=== PATIENT | female | born 1975 | race Caucasian/White ===

== ENCOUNTER 2017-03-05 20:08 | Emergency (ER) | payer OTHER ==
[~2017-03-05] VITALS: Ht 154.9 cm; Wt 52.3 kg
[~2017-03-05 20:08] MED LIST: ASPIR-TRIN325 M1 PO; Birth Control Pill; CHANTIX0.5 MG PO; CLINDAMYCIN HC150 MG PO; CLONAZEPAM0.5 MG; CLONAZEPAM0.5 MG PO; CYCLOBENZAPRINE 10 M; CYMBALTA30 MG PO; DEPAKOTE250 MG; ENDOCET 5-3251 EACH; ENDOCET 5-3251 EACH PO; FIORICET 50-301 EACH PO; GABAPENTIN100 MG PO; HYDROXYZINE PAM25 MG PO; IMITREX25 MG PO; KLONOPIN0.5 M1 PO; LAMICTAL25 MG PO; MACROBID100 MG PO; METHYLPREDNISOLONE PO; MOBIC7.5 MG PO; NAPROSYN500 MG PO; NICODERM CQ1 EAC2 TD; NICOTINE; OMEPRAZOLE20 M3 PO; PERCOCET 5/31 TABLET PO; PREDNISONE10 MG; QUETIAPINE FUMA50 MG PO; RANITIDINE HCL300 MG PO; SUMATRIPTAN SUC50 MG; VALIUM5 MG PO; VENLAFAXINE HC150 M1 PO; XANAX0.5 MG PO; Xanax PO; ZITHROMAX Z-PA250 MG PO; ZITHROMAX250 MG PO; ZOLPIDEM TARTRAT5 MG PO
[2017-03-05 20:59] LABS: HEMATOCRIT 37.5 % (36.0-46.0); MCH 31.6 PG (29.0-34.0); MCHC 34.7 G/DL (30.0-36.0); MEAN PLAT.VOLUME 9.6 uM^3 (9.5-12.4); PLATELET COUNT 220 K/uL (156-360); RBC DIS.WIDTH-CV 11.9 % (11.8-14.6); RBC DIS.WIDTH-SD 39.6 % (39-53); RED BLOOD COUNT 4.12 M/uL (3.80-5.20); WHITE BLOOD COUNT 9.5 K/uL (4.1-10.2)
[2017-03-05 21:07] LABS: CHLORIDE 108 mEq/L (99-109); POTASSIUM 3.1 mEq/L (3.7-5.4); SODIUM 142 mEq/L (136-147)
[2017-03-05 21:09] LABS: GLUCOSE 92 mg/dL (70-99)
[2017-03-05 21:11] LABS: ANION GAP 10 MEQ/L (2-14)
[2017-03-05 21:13] LABS: ALKALINE PHOSPHATASE 55 IU/L (3-129); GFR ESTIMATE (CALCULATED) > 59 mL/min/
[2017-03-05 21:14] LABS: UREA NITROGEN (BUN) 7 mg/dL (9-23)
[2017-03-05 21:24] LABS: QUANTITATIVE HCG < 4.0 MIU/ML
[2017-03-05] MEDS ORDERED: ZOFRAN4 MG PO (23:03)
[2017-03-05] MEDS ORDERED: BENTYL10 MG PO (23:03)
[2017-03-05 23:12] LABS: ADD MIUA? NO; BILIRUBIN NEGATIVE; BLOOD NEGATIVE; COLOR YELLOW ((YELLOW)); GLUCOSE (STRIP) NEGATIVE; KETONES NEGATIVE; LEUKOCYTES NEGATIVE; NITRITE NEGATIVE; PROTEIN (STRIP) NEGATIVE; UCUL ADDED? NO; UROBILINOGEN 0.2 MG/DL (0.2-1.0)
[2017-03-05 23:36] VITALS: BP 116/76
[2017-03-05 23:41] LABS: SPECIFIC GRAVITY 1.067 (1.000-1.030)
== END 2017-03-05 23:40 | disposition home or self-care (01) ==
LOC: EME 20:08
DX: R10.9 Unspecified abdominal pain (principal); Z88.6 Allergy status to analgesic agent; Z87.891 Personal history of nicotine dependence
CPT/HCPCS: 74177; 80053; 81003; 83605; 84702; 85027; 99281; 99285; J2405; J3010; J7030

== ENCOUNTER 2018-02-24 18:19 | Emergency (ER) | payer OTHER ==
[~2018-02-24] VITALS: Ht 154.9 cm; Wt 54.0 kg
[~2018-02-24 18:19] MED LIST changes: +BENTYL10 MG PO; +ZOFRAN4 MG PO
[2018-02-24 18:52] LABS: HEMOGLOBIN 13.9 G/DL (11.9-15.5); MCH 31.2 PG (29.0-34.0); MCHC 35.6 G/DL (30.0-36.0); MCV 87.6 FL (83-99); PLATELET COUNT 412 K/uL (156-360); RBC DIS.WIDTH-SD 38.9 % (39-53); RED BLOOD COUNT 4.45 M/uL (3.80-5.20); WHITE BLOOD COUNT 15.8 K/uL (4.1-10.2)
[2018-02-24 19:06] LABS: CHLORIDE 103 mEq/L (99-109); POTASSIUM 3.5 mEq/L (3.7-5.4); SODIUM 141 mEq/L (136-147)
[2018-02-24 19:07] LABS: GLUCOSE 80 mg/dL (70-99)
[2018-02-24 19:11] LABS: CREATININE 0.8 mg/dL (0.6-1.3); GFR ESTIMATE (CALCULATED) > 59 mL/min/
[2018-02-24 19:12] LABS: UREA NITROGEN (BUN) 12 mg/dL (9-23)
[2018-02-24 19:17] LABS: TROP-I INTERPRETATION NEGATIVE; TROPONIN-I < 0.01 ng/mL (0.0-0.30)
[2018-02-24 21:44] LABS: LIPASE 40 U/L (1.0-51.0)
[2018-02-24] MEDS ORDERED: MOTRIN400 MG PO (23:12)
[2018-02-24] MEDS ORDERED: ZOFRAN4 MG PO (23:12)
[2018-02-24] MEDS ORDERED: IMODIUM A-D2 M2 PO (23:12)
[2018-02-24 23:35] VITALS: BP 110/75
== END 2018-02-24 23:38 | disposition left against medical advice (07) ==
LOC: EME 18:19
PROVIDERS: Emergency Medicine
DX: R06.02 Shortness of breath (principal); R07.9 Chest pain, unspecified; R11.0 Nausea; M79.602 Pain in left arm; Z53.1 Procedure and treatment not carried out because of patient's decision for reasons of belief and group pressure
CPT/HCPCS: 71046; 80048; 83690; 84484; 85027; 87502; 93005; 99281; 99285; J1885; J2405; J7030